=== PATIENT | female | born 1940 | race Hispanic/Latino ===

== ENCOUNTER 2017-07-02 11:15 | Day surgery (SDC) | payer MEDICARE, OTHER ==
[2017-07-02] MEDS ORDERED: MYDRIACYL ONE (11:21)
[2017-07-02] MEDS ORDERED: AK-Dilate ONE (11:21)
[2017-07-02] MEDS ORDERED: IOPIDINE ONE (11:21)
[2017-07-02] MEDS ORDERED: IOPIDINE OD ONE (11:30)
[2017-07-02] MEDS ORDERED: AK-Dilate OD ONE (11:35)
[2017-07-02] MEDS ORDERED: MYDRIACYL OD ONE (11:35)
[2017-07-02 11:51] VITALS: BP 152/80
== END 2017-07-02 12:35 | disposition home or self-care (01) ==
LOC: OR 11:15
PROVIDERS: ATTEND Specialist
DX: H26.491 Other secondary cataract, right eye (principal); M19.90 Unspecified osteoarthritis, unspecified site; K51.90 Ulcerative colitis, unspecified, without complications; Z87.891 Personal history of nicotine dependence

== ENCOUNTER 2017-07-09 11:15 | Day surgery (SDC) | payer MEDICARE, OTHER ==
[2017-07-09] MEDS ORDERED: MYDRIACYL OS ONE (11:35)
[2017-07-09] MEDS ORDERED: NEOFRIN OS ONE (11:35)
[2017-07-09] MEDS ORDERED: IOPIDINE OS ONE ×2 (11:35→13:15)
[2017-07-09 13:58] VITALS: BP 119/66
== END 2017-07-09 13:16 | disposition home or self-care (01) ==
LOC: OR 11:15
PROVIDERS: ATTEND Specialist
DX: H26.492 Other secondary cataract, left eye (principal); M19.90 Unspecified osteoarthritis, unspecified site; K50.90 Crohn's disease, unspecified, without complications; K21.9 Gastro-esophageal reflux disease without esophagitis; Z90.710 Acquired absence of both cervix and uterus; Z87.891 Personal history of nicotine dependence; Z98.890 Other specified postprocedural states